=== PATIENT | female | born 1935 | race Caucasian/White ===

== ENCOUNTER 2017-11-26 03:03 | Emergency (ER) | payer MEDICARE, OTHER ==
[~2017-11-26] VITALS: Ht 157.5 cm; Wt 118.0 kg
[2017-11-26 03:49] LABS: HEMATOCRIT 38.9 % (37.0-47.0); HEMOGLOBIN 12.5 g/dl (12.0-16.0); IMMATURE GRANULOCYTES 0.6 % (0.0-1.0); MEAN CELL VOLUME 86.6 fL CALC (80.0-100.0); MEAN CORPUSCULAR HGB 27.8 pG CALC (26.0-32.0); MEAN CORPUSCULAR HGB CONC 32.1 g/L CALC (32.0-36.0); NEUT# 6.49 thou/uL (2.00-7.15); RED BLOOD COUNT 4.49 mill/uL (4.20-5.60); RED CELL DISTRI WIDTH 14.7 % (11.5-15.5)
[2017-11-26 03:55] LABS: ALBUMIN 4.5 g/dL (3.2-5.0); ALKALINE PHOSPHATASE 92 u/l (38-126); ANION GAP 19 (6-22 (CALC)); BILIRUBIN, TOTAL 0.4 mg/dL (0.0-1.4); BUN 24 mg/dL (8-23); BUN/CREATININE RATIO 32 (12-20 (CALC)); CARBON DIOXIDE 22 mmol/l (22-30); CHLORIDE 105 mmol/l (95-108); CREATININE 0.8 mg/dL (0.5-1.0); GFR > 60 ML/MIN (>=60 (CALC)); GFR FOR AFR.AMER. > 60 ML/MIN (>=60 (CALC)); POTASSIUM 4.6 mmol/l (3.5-5.1); SGOT/AST 26 u/l (9-36); SGPT/ALT 20 u/l (11-66); SODIUM 142 mmol/l (137-146); TOTAL PROTEIN 7.4 g/dL (6.3-8.2)
[2017-11-26 04:09] LABS: URINE BILIRUBIN - DIPSTICK NEGATIVE (NEGATIVE); URINE BLOOD DIPSTICK NEGATIVE (NEGATIVE); URINE CLARITY CLOUDY; URINE COLOR YELLOW; URINE GLUCOSE - DIPSTICK NEGATIVE (NEGATIVE); URINE KETONE NEGATIVE (NEGATIVE); URINE LEUK ESTERASE SMALL (NEGATIVE); URINE NITRITE - DIPSTICK NEGATIVE (Negative); URINE PROTEIN - DIPSTICK NEGATIVE (NEG-TRACE); URINE SPECIFIC GRAVITY <=1.005; URINE UROBILINOGEN - DIPSTICK 0.2 E.U./dL (0.2)
[2017-11-26 04:13] LABS: URINE RBC 0-2 RBC/hpf (0-5)
[2017-11-26 04:14] LABS: URINE BACTERIA MANY hpf; URINE SQUAMOUS EPITHELIAL CELL FEW EPI/hpf (0-FEW); URINE WBC 20-50 WBC/hpf (0-5)
[2017-11-26] MEDS ORDERED: METFORMIN HCL1000 MG PO (04:19)
[2017-11-26] MEDS ORDERED: GABAPENTIN300 M2 (04:20)
[2017-11-26] MEDS ORDERED: AMOXICILLIN500 MG PO (04:21)
[2017-11-26] MEDS ORDERED: RANITIDINE HCL150 MG PO (04:22)
[2017-11-26] MEDS ORDERED: ENALAPRIL MALEA10 MG PO (04:23)
[2017-11-26] MEDS ORDERED: B-12500 MC1 PO (04:25)
[2017-11-26 05:08] VITALS: BP 170/85
== END 2017-11-26 05:23 | disposition home or self-care (01) ==
LOC: ED 03:03
PROVIDERS: Emergency Medicine
DX: N39.0 Urinary tract infection, site not specified (principal); E11.9 Type 2 diabetes mellitus without complications; I10 Essential (primary) hypertension; Z87.442 Personal history of urinary calculi; Z79.84 Long term (current) use of oral hypoglycemic drugs; B96.1 Klebsiella pneumoniae [K. pneumoniae] as the cause of diseases classified elsewhere

== ENCOUNTER 2018-01-07 10:47 | Inpatient (IN) | payer MEDICARE, OTHER ==
[~2018-01-07] VITALS: Ht 154.9 cm; Wt 83.4 kg
[~2018-01-07 10:47] MED LIST: AMOXICILLIN500 MG PO; B-12500 MC1 PO; ENALAPRIL MALEA10 MG PO; GABAPENTIN300 M2 PO; METFORMIN HCL1000 MG PO; RANITIDINE HCL150 MG PO
--- NOTE | 2018-01-07 10:55 | NUR ---
PATIENT TO ROOM VIA EMS AND PHYSICIAN NOTIFIED OF PATIENT STATUS
[2018-01-07 11:55] LABS: HEMATOCRIT 37.7 % (37.0-47.0); HEMOGLOBIN 12.1 g/dl (12.0-16.0); IMMATURE GRANULOCYTES 0.8 % (0.0-1.0); MEAN CELL VOLUME 88.9 fL CALC (80.0-100.0); MEAN CORPUSCULAR HGB 28.5 pG CALC (26.0-32.0); MEAN CORPUSCULAR HGB CONC 32.1 g/L CALC (32.0-36.0); NEUT# 7.42 thou/uL (2.00-7.15); RED BLOOD COUNT 4.24 mill/uL (4.20-5.60); RED CELL DISTRI WIDTH 13.6 % (11.5-15.5)
[2018-01-07 12:05] LABS: ALBUMIN 3.9 g/dL (3.2-5.0); ALKALINE PHOSPHATASE 91 u/l (38-126); ANION GAP 22 (6-22 (CALC)); BILIRUBIN, TOTAL 0.4 mg/dL (0.0-1.4); BUN 15 mg/dL (8-23); BUN/CREATININE RATIO 22 (12-20 (CALC)); CARBON DIOXIDE 19 mmol/l (22-30); CHLORIDE 105 mmol/l (95-108); CREATININE 0.7 mg/dL (0.5-1.0); GFR > 60 ML/MIN (>=60 (CALC)); GFR FOR AFR.AMER. > 60 ML/MIN (>=60 (CALC)); LIPASE 143 u/l (23-300); POTASSIUM 4.6 mmol/l (3.5-5.1); SGOT/AST 20 u/l (9-36); SGPT/ALT 26 u/l (11-66); SODIUM 141 mmol/l (137-146)
[2018-01-07 13:07] LABS: URINE BILIRUBIN - DIPSTICK NEGATIVE (NEGATIVE); URINE BLOOD DIPSTICK TRACE-INTACT (NEGATIVE); URINE COLOR YELLOW; URINE GLUCOSE - DIPSTICK NEGATIVE (NEGATIVE); URINE KETONE NEGATIVE (NEGATIVE); URINE NITRITE - DIPSTICK NEGATIVE (Negative); URINE PROTEIN - DIPSTICK NEGATIVE (NEG-TRACE); URINE UROBILINOGEN - DIPSTICK 0.2 E.U./dL (0.2)
[2018-01-07 13:09] LABS: URINE CLARITY CLOUDY; URINE LEUK ESTERASE LARGE (NEGATIVE)
[2018-01-07] MEDS ORDERED: DOXYCYC MONO100 M2 PO (13:47)
--- NOTE | 2018-01-07 14:14 | NUR ---
PT UPDATED RESULTS HAVE COME DUE. PT AMBULATORY TO BR WITH SLOW,STEADY GAIT. PT BS 65, PROVIDED JUICE AND SANDWICH. PT READIED FOR DISPOSITION.
[2018-01-07 15:34] LABS: URINE BACTERIA FEW hpf; URINE SQUAMOUS EPITHELIAL CELL FEW EPI/hpf (0-FEW); URINE WBC TNTC WBC/hpf (0-5)
[2018-01-07] MEDS ORDERED: LEVEMIR100 UNIT/M SC (16:20)
[2018-01-07] MEDS ORDERED: PROBIOTIC PO (16:20)
--- NOTE | 2018-01-07 16:29 | NUR ---
PT BECAME QUITE SHAKY DURING DISCHARGE PROCESS. SHE WAS JPROVIDED D50 AND SANDWICH, STILL FELT SHAKY. EDP DECIDES ON ADMISSION FOR OBSERVATION.
--- NOTE | 2018-01-07 17:50 | NUR ---
PT TAKEN TO ROOM 271 WITHOUT INCIDENT.
[2018-01-07 17:54] VITALS: BP 148/46
--- NOTE | 2018-01-07 17:58 | NUR ---
PT ARRIVED TO FLOOR VIA STRETCHER ACCOMPANIED BY HIGINIO PIEDRA @ 1253. AMBULATES INDEPENDENTLY. STEADY GAIT. DENIES PAIN. REPORTING OF CONCERNS ENCOURAGED. CALL LIGHT REVIEWED AND IN REACH. PT STATES UNDERSTANDING.
[2018-01-07 19:00] VITALS: BP 128/41
--- NOTE | 2018-01-07 19:15 | NUR ---
PT RESTING IN BED. PT IS ALERT AND ORIENTED X3. PERRLA. RESP ARE EVEN AND UNLABORED. NO DISTRESS NOTED. LUNGS ARE CLEAR THROUGHOUT. HR REGULAR. PULSES PALPABLE THROUGHOUT. NO EDEMA NOTED. BS ACTIVE. #22 LEFT WRIST. SALINE LOCKED NO REDNESS OR EDEMA NOTED. WILL CONTINUE TO MONITOR
--- NOTE | 2018-01-08 | NUR ---
PT RESTING IN BED WITH EYES CLOSED. RESP ARE EVEN AND UNLABORED. NO DISTRESS NOTED. WILL CONTINUE TO MONITOR
[2018-01-08 00:13] VITALS: BP 134/40
--- NOTE | 2018-01-08 04:01 | NUR ---
PT RESTING IN BED WITH EYES CLOSED. RESP ARE EVEN AND UNLABORED. NO DISTRESS NOTED. WILL CONTIUE TO MONITOR
[2018-01-08 04:29] VITALS: BP 143/50
--- NOTE | 2018-01-08 06:48 | NUR ---
REPORT RECEIVED FROM HIGINIO MOLINA. PT SITTING ON SIDE OF BED. DENIES PAIN. REPORTING OF CONCERNS ENCOURAGED. STATES THERE HAS BEEN NO DIARRHEA SINCE ADMISSION, ORIGINAL REASON FOR VISIT TO ED. PLAN OF CARE DISCUSSED. CALL LIGHT REVIEWED AND IN REACH. PT STATES UNDERSTANDING.
[2018-01-08 07:14] VITALS: BP 138/66
--- NOTE | 2018-01-08 10:47 | NUR ---
PT REPORTS MILD HEADACHE, STATES SLEEP USUALLY RELIEVES THEM. ROOM DARKENED. TV TURNED OFF. PT BACK IN BED FOR REST. CALL LIGHT USE REINFORCED.
[2018-01-08 11:20] VITALS: BP 166/55
--- NOTE | 2018-01-08 13:36 | NUR ---
Spoke to Pt about current medications. Pt was educated on medications and counseled on blood sugar monotoring. Pt confirmed understanding.
--- NOTE | 2018-01-08 14:54 | NUR ---
DR. LOJA IN TO SEE PT AT THIS TIME.
--- NOTE | 2018-01-08 15:03 | NUR ---
PLAN OF CARE UPDATED BY DR. LOJA. RECOMMENDATION OF TRANSFER TO [facility]. QUARRY WORKER SPOKE WITH PT AT LENGTH REGARDING TRANSFER. PT REFUSING TO BE TRANSFERED.
[2018-01-08 15:41] LABS: HEMATOCRIT 37.4 % (37.0-47.0); IMMATURE GRANULOCYTES 0.7 % (0.0-1.0); MEAN CELL VOLUME 88.6 fL CALC (80.0-100.0); MEAN CORPUSCULAR HGB 28.4 pG CALC (26.0-32.0); MEAN CORPUSCULAR HGB CONC 32.1 g/L CALC (32.0-36.0); NEUT# 6.35 thou/uL (2.00-7.15); RED BLOOD COUNT 4.22 mill/uL (4.20-5.60); RED CELL DISTRI WIDTH 13.7 % (11.5-15.5)
[2018-01-08 15:46] VITALS: BP 138/63
--- NOTE | 2018-01-08 19:00 | NUR ---
PT SITTING UP IN CHAIR IN ROOM. PT IS ALERT AND ORIENTED X3. PERRLA. RESP ARE EVEN AND UNLABORED. NO DISTRESS NOTED. LUNGS ARE CLEAR. HR REGULAR. TELE IN PLACE. PULSES PALPABLE THROUGHOUT. NO EDEMA NOTED. BS ACTIVE. PT REPORTS BM TODAY. #24 STARTED IN LEFT HAND X2 ATTEMPTS. NO REDNESS OR EDEMA NOTED. PT TOLERATED WELL. CALL LIGHT IN REACH. WILL CONTINUE TO MONITOR
[2018-01-08 19:09] VITALS: BP 154/58
[2018-01-08 21:03] LABS: C. DIFFICILE TOXIN A&B NEGATIVE (NEGATIVE)
--- NOTE | 2018-01-08 23:59 | NUR ---
PT RESTING IN BED WITH EYES CLOSED. PT AROUSES EASILY TO VERBAL STIMULI. RESP ARE EVEN AND UNLABORED. NO DISTRESS NOTED. WILL CONTINUE TO MONITOR
[2018-01-09] VITALS (8 sets, daily range): BP systolic 137–181; BP diastolic 41–65
--- NOTE | 2018-01-09 03:40 | NUR ---
PT RESTING IN BED WITH EYES CLOSED. RESP ARE EVEN AND UNLABORED. NO DISTRESS NOTED. WILL CONTINUE TO MONITOR
[2018-01-09 05:13] LABS: HEMATOCRIT 33.4 % (37.0-47.0); HEMOGLOBIN 10.9 g/dl (12.0-16.0); IMMATURE GRANULOCYTES 0.7 % (0.0-1.0); MEAN CELL VOLUME 88.6 fL CALC (80.0-100.0); MEAN CORPUSCULAR HGB 28.9 pG CALC (26.0-32.0); MEAN CORPUSCULAR HGB CONC 32.6 g/L CALC (32.0-36.0); NEUT# 4.57 thou/uL (2.00-7.15); RED BLOOD COUNT 3.77 mill/uL (4.20-5.60); RED CELL DISTRI WIDTH 13.8 % (11.5-15.5)
--- NOTE | 2018-01-09 07:21 | NUR ---
RECEIVED BEDSIDE REPORT FROM MAURISIO MICTHELL. RESTING IN SUPINE POSITION WITH EYES CLOSED, AWAKENS EASILY. RESPS EVEN AND UNLABORED ON ROOM AIR, TELE MONITOR IN PLACE. VOICES NO NEEDS AT THIS TIME. PLAN OF CARE DISCUSSED. SAFETY PRECAUTIONS REINFORCED. BED IN LOWEST POSITION WITH WHEELS LOCKED. CALL LIGHT WITHIN REACH. ENCOURAGED PT TO CALL FOR ANY NEEDS.
--- NOTE | 2018-01-09 12:25 | NUR ---
SITTING IN BEDSIDE CHAIR. RESPS EVEN AND UNLABORED ON ROOM AIR, TELE MONITOR IN PLACE. DENIES PAIN OR DISCOMFORT. #24 LH INFUSING PIPERCILLIN WITHOUT DIFFICULTY, SITE APPEARS HEALTHY. CALL LIGHT WITHIN REACH. WILL CONTINUE TO MONITOR.
--- NOTE | 2018-01-09 16:18 | NUR ---
RESTING IN SEMI FOWLERS WITH EYES CLOSED, AWAKENS EASILY. RESPS EVEN AND UNLABORED ON ROOM AIR, TELE MONITOR IN PLACE. VOICES NO NEEDS AT THIS TIME. CALL LIGHT WITHIN REACH. WILL CONTINUE TO MONITOR.
--- NOTE | 2018-01-09 17:30 | NUR ---
PHONE CALL FROM JOSE SYLVESTER IN ER, PT WITH RUN BEN VALERIO. MARIYA HERMAN NOTIFIED, NEW ORDERS RECEIVED.
--- NOTE | 2018-01-09 19:00 | NUR ---
PT SITTING UP IN CHAIR TALKING ON PHONE. DENIES PAIN OR NEEDS AT THIS TIME. CALL LIGHT IN REACH. BEDSIDE TABLE IN FRONT OF HER. WILL CONTINUE TO MONITOR.
--- NOTE | 2018-01-09 20:00 | NUR ---
ASSESSMENT ON PATIENT. PT ALERT AND ORIENTED X3. ANSWERS QUESTIONS WILLINGLY. 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 SHARES HER PLAN ON DAUGHTER FLYING IN TO HELP HER PREPARE TO LEAVE FOR HOME IN [place]. STATES SHE WILL BE MORE COMFORTABLE WITH HER OWN DOCTORS AND WILL ALSO HAVE HELP FROM ADULT CHILDREN. ----- ASSESSMENT AND VSS CHARTED. BED SIDE TABLE IN FRONT OF HER, SITTING IN CHAIR AT BEDSIDE. CALL LIGHT IN REACH. IV PATENT, NO S/S INFILTRATION, JASON HOSE ON, NON SLID SOCKS ON. WILL CONTINUE TO MONITOR.
[2018-01-10 00:20] VITALS: BP 159/59
--- NOTE | 2018-01-10 00:30 | NUR ---
ASSISTED UP TO BATHROOM. SMALL LOOSE STOOL, YELLOWISH BROWN COLOR. ASSISTED BACK TO BED. CALL LIGHT IN REACH, BED IN LOW POSITION.
--- NOTE | 2018-01-10 01:52 | NUR ---
CALL TO LAB RE MIDNIGHT TROPS. TIME IN COMPUTER FOR TROPS NOT CORRECT. LAB INFORMED TO ADD A TROP ORDER FOR NOW, THEN 3RD ONE WOULD BE BACKED UP AFTER 6 HOURS. LAB TO CHANGE TIMES AND WILL COME DRAW 2ND TROPONIN NOW.
[2018-01-10 02:11] LABS: HEMATOCRIT 37.5 % (37.0-47.0); IMMATURE GRANULOCYTES 0.9 % (0.0-1.0); MEAN CELL VOLUME 89.1 fL CALC (80.0-100.0); MEAN CORPUSCULAR HGB 28.5 pG CALC (26.0-32.0); NEUT# 6.23 thou/uL (2.00-7.15); RED BLOOD COUNT 4.21 mill/uL (4.20-5.60); RED CELL DISTRI WIDTH 13.6 % (11.5-15.5)
[2018-01-10 02:29] LABS: ANION GAP 18 (6-22 (CALC)); BUN 13 mg/dL (8-23); BUN/CREATININE RATIO 18 (12-20 (CALC)); CARBON DIOXIDE 23 mmol/l (22-30); CHLORIDE 107 mmol/l (95-108); CREATININE 0.7 mg/dL (0.5-1.0); GFR > 60 ML/MIN (>=60 (CALC)); GFR FOR AFR.AMER. > 60 ML/MIN (>=60 (CALC)); MAGNESIUM 1.6 mg/dL (1.6-2.3); SODIUM 144 mmol/l (137-146)
[2018-01-10 04:17] VITALS: BP 163/70
--- NOTE | 2018-01-10 06:30 | NUR ---
IN WITH PATIENT. IV ANTIBIOTIC HUNG PER EMAR. PT ASSISTED TO BATHROOM AND BACK. ER CALLED TO STATE HR IN 120S. OUTPUT CHARTED. PT DENIES PAIN OR FURTHER NEEDS. BEDSIDE TABLE AT SIDE OF BED. CALL LIGHT WITH PATIENT. BED IN LOW POSITION.
--- NOTE | 2018-01-10 07:25 | NUR ---
RECEIVED BEDSIDE REPORT FROM EL SYLVESTER. RESTING IN SEMI FOWLERS, RESPS EVEN AND UNLABORED ON ROOM AIR, TELE MONITOR IN PLACE. #24 LH FLUSHES WELL, SITE APPEARS HEALTHY. DENIES PAIN OR DISCOMFORT. PLAN OF CARE DISCUSSED. SAFETY PRECAUTIONS REINFORCED. BED IN LOWEST POSITION WITH WHEELS LOCKED. CALL LIGHT WITHIN REACH. ENCOURAGED PT TO CALL FOR ANY NEEDS.
[2018-01-10 08:10] VITALS: BP 163/55
[2018-01-10 11:03] VITALS: BP 159/64
[2018-01-10] MEDS ORDERED: AMLODIPINE BESYL5 MG PO (11:18)
[2018-01-10] MEDS ORDERED: AUGMENTIN875TAB PO (11:19)
--- NOTE | 2018-01-10 12:20 | NUR ---
IV site discontinued, cath intact. No edema , no redness, voices no discomfort.
--- NOTE | 2018-01-10 13:36 | NUR ---
Discharge instructions given. Patient verbalizes understanding of same. Discharged in stable condition via Wheelchair to Home with friend. All belongings sent with pt.
== END 2018-01-10 13:44 | disposition home or self-care (01) | DRG 393 ==
LOC: ED 10:47 → ED-I 15:20 → ED 16:18 → MS2 16:19
PROVIDERS: Family Medicine; Hospitalist; Nurse Practitioner Family; ADMIT Internal Medicine; ATTEND Internal Medicine
DX: K52.1 Toxic gastroenteritis and colitis (principal); K57.31 Diverticulosis of large intestine without perforation or abscess with bleeding; E11.649 Type 2 diabetes mellitus with hypoglycemia without coma; N39.0 Urinary tract infection, site not specified; T36.8X5A Adverse effect of other systemic antibiotics, initial encounter; E66.9 Obesity, unspecified; I10 Essential (primary) hypertension; R00.8 Other abnormalities of heart beat; I49.3 Ventricular premature depolarization; Z88.1 Allergy status to other antibiotic agents; Z87.442 Personal history of urinary calculi; Z79.84 Long term (current) use of oral hypoglycemic drugs; Z68.34 Body mass index [BMI] 34.0-34.9, adult
CPT/HCPCS: G0378; Q9967